=== PATIENT | male | born 1945 | race Caucasian/White ===

== ENCOUNTER 2016-09-30 12:14 | Emergency (ER) | payer BC, MEDICARE ==
[~2016-09-30] VITALS: Ht 172.7 cm; Wt 69.0 kg
[2016-09-30 12:41] VITALS: BP 165/102; PULSE 102; RESP 17; TEMP 98; O2SAT 97
--- NOTE | 2016-09-30 13:37 | PD ---
HPI Chief Complaint: Cold / Flu Symptoms Time Seen by Provider: 13:35 Travel History International Travel<30 days: No Contact w/Intl Traveler<30days: No Traveled to known affect area: No History of Present Illness HPI 70-year-old male presents to the emergency room for evaluation of nonspecific complaints including productive cough and increasing fatigue over the past 2 weeks. Patient states he was trying to get well on his own but symptoms are persistent. Biggest complaint is fatigue. Cough is intermittent and productive of green/brown sputum. He has been taking Tylenol [id number] but no other cough or cold medications. He denies chest pain, shortness of breath, fever, chills, nausea, and vomiting. Denies chronic medical conditions or occasions. Patient smokes half a pack of cigarettes per day. PFSH Past Medical History Medical History: Denies Significant Hx Tetanus Vaccination: > 5 Years Influenza Vaccination: No Past Surgical History Tympanostomy Tube: Yes Social History Alcohol Use: Yes (~4 TIME WEEKLY) Tobacco Use: Yes (1/2 PPD) Substance Use: No Allergies-Medications (Allergen,Severity, Reaction): Coded Allergies: No Known Allergies (Unverified , 09/30/16) Reported Meds & Prescriptions Reported Meds & Active Scripts Active Azithromycin 250 Mg Tab 250 Mg PO DIRECTED Take 2 tabs (500 mg) on day 1 then 1 tab daily x 4 days. Review of Systems Except as stated in HPI: all other systems reviewed are Neg Physical Exam Narrative GENERAL: Well-nourished, well-developed male in no acute distress. Afebrile. Ambulatory. SKIN: Warm and dry. HEAD: Normocephalic. EYES: No scleral icterus. No injection or drainage. ENT: Mucosa pink and moist. No erythema or exudates. No uvular edema. No uvular , palatal, or tonsillar deviation. Airway patent. NECK: Supple, trachea midline. No JVD or lymphadenopathy. CARDIOVASCULAR: Regular rate and rhythm without murmurs, gallops, or rubs. RESPIRATORY: Breath sounds equal bilaterally. No accessory muscle use. Distant lung sounds. No crackles, rales, wheezes, or rhonchi appreciated. Data Data Last Documented VS Vital Signs Date Time Temp Pulse Resp B/P Pulse Ox O2 Delivery O2 Flow Rate FiO2 09/30/16 14:00 95 Room Air 09/30/16 14:00 20 09/30/16 12:41 98.0 102 165/102 Orders Complete Blood Count With Diff (09/30/16 13:31) Comprehensive Metabolic Panel (09/30/16 13:31) Act Partial Throm Time (Ptt) (09/30/16 13:31) Prothrombin Time / Inr (Pt) (09/30/16 13:31) Iv Access Insert/Monitor (09/30/16 13:31) Oximetry (09/30/16 13:31) Oxygen Administration (09/30/16 13:31) Chest, Pa & Lat (09/30/16 13:31) Labs Laboratory Tests Test 09/30/16 13:45 White Blood Count 8.5 TH/MM3 Red Blood Count 4.47 MIL/MM3 Hemoglobin 13.7 GM/DL Hematocrit 40.7 % Mean Corpuscular Volume 91.0 FL Mean Corpuscular Hemoglobin 30.6 PG Mean Corpuscular Hemoglobin 33.7 % Concent Red Cell Distribution Width 12.2 % Platelet Count 675 TH/MM3 Mean Platelet Volume 5.9 FL Neutrophils (%) (Auto) 80.2 % Lymphocytes (%) (Auto) 11.4 % Monocytes (%) (Auto) 7.1 % Eosinophils (%) (Auto) 0.8 % Basophils (%) (Auto) 0.5 % Neutrophils # (Auto) 6.8 TH/MM3 Lymphocytes # (Auto) 1.0 TH/MM3 Monocytes # (Auto) 0.6 TH/MM3 Eosinophils # (Auto) 0.1 TH/MM3 Basophils # (Auto) 0.0 TH/MM3 CBC Comment DIFF FINAL Differential Comment Prothrombin Time 10.4 SEC Prothromb Time International 0.9 RATIO Ratio Activated Partial 38.5 SEC Thromboplast Time Sodium Level 135 MEQ/L Potassium Level 3.9 MEQ/L Chloride Level 97 MEQ/L Carbon Dioxide Level 31.4 MEQ/L Anion Gap 7 MEQ/L Blood Urea Nitrogen 7 MG/DL Creatinine 0.69 MG/DL Estimat Glomerular Filtration 114 ML/MIN Rate Random Glucose 96 MG/DL Calcium Level 8.6 MG/DL Total Bilirubin 0.4 MG/DL Aspartate Amino Transf 17 U/L (AST/SGOT) Alanine Aminotransferase 30 U/L (ALT/SGPT) Alkaline Phosphatase 76 U/L Total Protein 7.8 GM/DL Albumin 3.1 GM/DL MDM Medical Decision Making Medical Screen Exam Complete: Yes Emergency Medical Condition: Yes Medical Record Reviewed: Yes Differential Diagnosis Pneumonia versus COPD exacerbation versus influenza versus bronchitis versus URI Narrative Course 70-year-old male presents to the emergency room for evaluation of fatigue and productive cough for the past 2 weeks. Denies any other upper respiratory symptoms. Patient is afebrile and well-appearing in the emergency room. Resting comfortably in the chair. Patient is laughing and talking excitedly on the phone. He has slightly elevated blood pressure and heart rate which he states is normal for him. He denies chest pain or shortness of breath. No increased work of breathing. Lung sounds are clear and equal but slightly distant bilaterally. Chest x-ray shows possible chronic findings in the right lower lung field but no obvious pneumonia. CBC and CMP are unremarkable. Patient likely has acute exacerbation of chronic bronchitis due to years of smoking. Given acute exacerbation and x-ray findings, he will be discharged with azithromycin. Told to follow up with the primary care physician and return for worsening symptoms. He understands and agrees to plan. Diagnosis Primary Impression: Acute bronchitis Qualified Code: J20.9 - Acute bronchitis, unspecified organism Referrals: Primary Care Physician Patient Instructions: Acute Bronchitis (ED), General Instructions Additional Instructions: Rest and drink plenty of fluids including sugar-free Gatorade. Your labwork shows you are very slightly dehydrated. Azithromycin as directed, until gone. Follow-up with a primary care physician. Return to the emergency room for worsening symptoms. Med/Other Pt SpecificInfo: Prescription(s) given Scripts Azithromycin 250 Mg Try201 Mg PO DIRECTED #6 TAB Ref 0 Take 2 tabs (500 mg) on day 1 then 1 tab daily x 4 days. Prov:Pawan Sheehan MD 09/30/16 Disposition: 01 DISCHARGE HOME Condition: Stable Ambar Duke Sep 30, 2016 13:37
[2016-09-30 14:00] VITALS: RESP 20; O2SAT 95
[2016-09-30 14:05] LABS: AUTOMATED NEUTROPHIL # 6.8 TH/MM3 (1.8-7.7); BASOPHIL % 0.5 % (0.0-2.0); EOSINOPHIL # 0.1 TH/MM3 (0-0.4); EOSINOPHIL % 0.8 % (0.0-4.0); HEMATOCRIT 40.7 % (39.0-51.0); HEMO FLAGS DIFF FINAL; LYMPH % 11.4 % (9.0-44.0); MEAN CORPUSCULAR HEMOGLOBIN 30.6 PG (27.0-34.0); MEAN CORPUSCULAR HGB CONC 33.7 % (32.0-36.0); MONO % 7.1 % (0.0-8.0); NEUT % 80.2 % (16.0-70.0); PLATELET COUNT 675 TH/MM3 (150-450); RED BLOOD COUNT 4.47 MIL/MM3 (4.50-5.90); RED CELL DISTRIBUTION WIDTH 12.2 % (11.6-17.2); WHITE BLOOD COUNT 8.5 TH/MM3 (4.0-11.0)
[2016-09-30 14:14] LABS: CHLORIDE 97 MEQ/L (98-107); POTASSIUM 3.9 MEQ/L (3.5-5.1); SODIUM (NA) 135 MEQ/L (136-145)
[2016-09-30 14:17] LABS: APTT (PATIENT) 38.5 SEC (24.3-30.1); INTERNATIONAL NORMALIZED RATIO 0.9 RATIO; PROTHROMBIN TIME - PATIENT 10.4 SEC (9.8-11.6)
[2016-09-30 14:19] LABS: ANION GAP 7 MEQ/L (5-15); BICARBONATE 31.4 MEQ/L (21.0-32.0); BLOOD UREA NITROGEN 7 MG/DL (7-18)
[2016-09-30 14:22] LABS: ALT (GPT) 30 U/L (12-78); AST (GOT) 17 U/L (15-37)
[2016-09-30 14:23] LABS: GLOMERULAR FILTRATION RATE 114 ML/MIN (>89)
[2016-09-30 14:24] LABS: TOTAL BILIRUBIN ADULT 0.4 MG/DL (0.2-1.0)
[2016-09-30 14:25] LABS: ALKALINE PHOSPHATASE 76 U/L (45-117)
--- NOTE | 2016-09-30 14:25 | RADHPO ---
EXAM DATE/TIME: 09/30/2016 14:03 [facility] COMPARISON: No previous studies available for comparison. INDICATIONS : Short of breath MEDICAL HISTORY : None. SURGICAL HISTORY : None. ENCOUNTER: Initial ACUITY: 2 weeks PAIN SCORE: 3/10 LOCATION: Bilateral chest FINDINGS: PA and lateral views of the chest demonstrate the lungs to be symmetrically aerated without evidence of mass, infiltrate or effusion. Interstitial changes are seen within the anterior right lung base. T he cardiomediastinal contours are unremarkable. Osseous structures are intact. Old right-sided rib f ractures. CONCLUSION: Interstitial changes within the right lung base. These may be chronic in nature. No intra-alveolar in filtrates observed. Kelechi Rodriguez Jr., MD on September 30, 2016 at 14:21 Board Certified Radiologist. This report was verified electronically.
[2016-09-30] MEDS ORDERED: AZIT250T3 PO (14:31)
== END 2016-09-30 14:52 | disposition home or self-care (01) ==
LOC: PHEFT 12:14
DX: J20.9 Acute bronchitis, unspecified (principal); F17.210 Nicotine dependence, cigarettes, uncomplicated; R53.83 Other fatigue
CPT/HCPCS: 71020; 80053; 85025; 85610; 85730; 99283

== ENCOUNTER 2016-11-25 08:27 | Emergency (ER) | payer MEDICARE ==
[~2016-11-25] VITALS: Ht 170.2 cm; Wt 70.0 kg
[~2016-11-25 08:27] MED LIST: AZIT250T3 PO
[2016-11-25 08:37] VITALS: BP 176/98; PULSE 100; RESP 22; TEMP 97.6; O2SAT 99
[2016-11-25] MEDS ORDERED: SODIUM CHLORIDE 0.9% FLUSH 10 ML FLUSH IVF PRN (08:45)
[2016-11-25] MEDS ORDERED: methylPREDNISolone SOD SUCC 125 MG/2 ML VIAL IVP ONE (08:45)
[2016-11-25 08:49] VITALS: O2SAT 100
--- NOTE | 2016-11-25 08:52 | PD ---
HPI Chief Complaint: Cold / Flu Symptoms Time Seen by Provider: 08:38 Travel History International Travel<30 days: No Contact w/Intl Traveler<30days: No Traveled to known affect area: No History of Present Illness HPI This patient complains of shortness of breath. Duration 3 days. Symptoms are severe. He is laboring to breathe. He is a lifelong smoker that doesn't go to doctors or take medications. He has been wheezing and congested and has a dry hacking cough. He has not checked any temperatures. No chest pain. No alleviating factors. PFSH Past Surgical History Tympanostomy Tube: Yes Social History Alcohol Use: Yes (~4 TIME WEEKLY) Tobacco Use: Yes (09/05 PPD) Substance Use: No Allergies-Medications (Allergen,Severity, Reaction): Coded Allergies: No Known Allergies (Unverified , 09/30/16) Reported Meds & Prescriptions Reported Meds & Active Scripts Active Atrovent HFA 12.9 GM Inh (Ipratropium [place]) 17 Mcg/Act Aer 2 Puff INH TID Ventolin Hfa 18 GM Inh (Albuterol Sulfate) 90 Mcg/Act Aer 2 Puff INH Q4-6H PRN Prednisone 20 Mg Tab 40 Mg PO DAILY Take 40 mg (2 tablets) daily for 5 days Azithromycin 250 Mg Tab 250 Mg PO DIRECTED Take 2 tabs (500 mg) on day 1 then 1 tab daily x 4 days. Review of Systems General / Constitutional: No: Fever Eyes: No: Visual changes HENT: No: Headaches Cardiovascular: No: Chest Pain or Discomfort Respiratory: Positive: Cough, Shortness of Breath, Wheezing Gastrointestinal: No: Abdominal Pain Genitourinary: No: Dysuria Musculoskeletal: No: Pain Skin: No Rash Neurologic: No: Weakness Psychiatric: No: Depression Endocrine: No: Polydipsia Hematologic/Lymphatic: No: Easy Bruising Physical Exam Narrative GENERAL: Well-nourished, well-developed patient in respiratory distress. SKIN: Warm and dry. HEAD: Atraumatic. Normocephalic. EYES: Pupils equal and round. No scleral icterus. No injection or drainage. ENT: No nasal bleeding or discharge. Mucous membranes pink and moist. NECK: Trachea midline. No JVD. CARDIOVASCULAR: Regular rate and rhythm. No murmur appreciated. RESPIRATORY: Positive accessory muscle use. Diffuse expiratory wheezing. Breath sounds equal bilaterally. GASTROINTESTINAL: Abdomen soft, non-tender, nondistended. Hepatic and splenic margins not palpable. MUSCULOSKELETAL: No obvious deformities. No clubbing. No cyanosis. No edema. NEUROLOGICAL: Awake and alert. No obvious cranial nerve deficits. Motor grossly within normal limits. Normal speech. PSYCHIATRIC: Appropriate mood and affect; insight and judgment seems a bit weak. Data Data Last Documented VS Vital Signs Date Time Temp Pulse Resp B/P Pulse Ox O2 Delivery O2 Flow Rate FiO2 11/25/16 09:30 92 16 160/80 100 Nasal Cannula 11/25/16 08:55 3.00 11/25/16 08:37 97.6 Orders Complete Blood Count With Diff (11/25/16 08:44) Basic Metabolic Panel (Bmp) (11/25/16 08:44) Iv Access Insert/Monitor (11/25/16 08:44) Ecg Monitoring (11/25/16 08:44) Oximetry (11/25/16 08:44) Oxygen Administration (11/25/16 08:44) Chest, Single Ap (11/25/16 08:44) Sodium Chloride 0.9% Flush (Ns Flush) (11/25/16 08:45) Methylprednisolone So Succ Inj (Solumedr (11/25/16 08:45) Albuterol-Ipratropium Neb (Duoneb Neb) (11/25/16 08:45) Labs Laboratory Tests Test 11/25/16 08:59 White Blood Count 4.9 TH/MM3 Red Blood Count 5.13 MIL/MM3 Hemoglobin 16.0 GM/DL Hematocrit 47.9 % Mean Corpuscular Volume 93.4 FL Mean Corpuscular Hemoglobin 31.3 PG Mean Corpuscular Hemoglobin 33.5 % Concent Red Cell Distribution Width 15.0 % Platelet Count 288 TH/MM3 Mean Platelet Volume 6.8 FL Neutrophils (%) (Auto) 74.2 % Lymphocytes (%) (Auto) 9.0 % Monocytes (%) (Auto) 13.0 % Eosinophils (%) (Auto) 1.2 % Basophils (%) (Auto) 2.6 % Neutrophils # (Auto) 3.7 TH/MM3 Lymphocytes # (Auto) 0.4 TH/MM3 Monocytes # (Auto) 0.6 TH/MM3 Eosinophils # (Auto) 0.1 TH/MM3 Basophils # (Auto) 0.1 TH/MM3 CBC Comment DIFF FINAL Differential Comment Sodium Level 126 MEQ/L Potassium Level 4.3 MEQ/L Chloride Level 89 MEQ/L Carbon Dioxide Level 24.5 MEQ/L Anion Gap 13 MEQ/L Blood Urea Nitrogen 7 MG/DL Creatinine 0.63 MG/DL Estimat Glomerular Filtration 126 ML/MIN Rate Random Glucose 107 MG/DL Calcium Level 8.8 MG/DL MDM Medical Decision Making Medical Screen Exam Complete: Yes Emergency Medical Condition: Yes Medical Record Reviewed: Yes Differential Diagnosis Differential diagnosis includes COPD, asthma, pneumonia, bronchitis, CHF Narrative Course I have reviewed the patient's electronic medical record. Patient was seen here once in September 2016 for bronchitis This patient looks critically ill with hypoxic respiratory failure from probable COPD given his lifelong smoking and clinical presentation. He has room air saturation of 89-90% On a clinical basis he is significantly laboring to breathe He is emergently getting a series of 3 nebulizer treatments. I placed him on oxygen IV placed I gave him IV Solu-Medrol CBC is normal Metabolic profile shows hyponatremia 126 Extended cardiac monitoring reveals sinus tachycardia in the 120s Multiple bedside rechecks were done Upon final reevaluation he is somewhat improved and no longer critically ill but I do recommend hospitalization. He still short of breath and wheezing. Saturations have come up to 95% on room air Patient however is refusing my recommendation will sign out AGAINST MEDICAL ADVICE. He does not want to stay in the hospital Advised him to return if he worsens or changes his mind I prescribed him both Atrovent and albuterol inhalers as well as a course of prednisone Encouraged the cessation of smoking Critical Care Narrative Aggregate critical care time was 34 minutes. Time to perform other separately billable procedures was not included in the critical care time. My time did not include minutes spent treating any other patients simultaneously or on activities that did not directly contribute to the patient's treatment. The services I provided to this patient were to treat and/or prevent clinically significant deterioration that could result in: Cardiopulmonary arrest, hypoxemic brain injury, complete respiratory failure I provided critical care services requiring my management, as noted below: Chart data review, documentation time, medication orders and management, vital sign assessments/reviewing monitor data, ordering and reviewing lab tests, ordering and interpreting/reviewing x-rays and diagnostic studies, care of the patient and discussion of the patient with the admitting physicians. Diagnosis Primary Impression: Acute respiratory failure with hypoxia Additional Impression: COPD suggested by initial evaluation Additional Instructions: Stop smoking The patient was advised to follow up with their physician and return if they worsen. Med/Other Pt SpecificInfo: Prescription(s) given Scripts Ipratropium HFA 12.9 GM Inh (Atrovent HFA 12.9 GM Inh)17 Mcg/Act Aer2 Puff INH TID #1 INHALER Ref 0 Prov:Gil Okeefe MD 11/25/16 Albuterol 18 GM Inh (Ventolin Hfa 18 GM Inh)90 Mcg/Act Aer2 Puff INH Q4-6H PRN ( SHORTNESS OF BREATH) #1 INHALER Ref 0 Prov:Gil Okeefe MD 11/25/16 Prednisone 20 Mg Tab40 Mg PO DAILY #10 TAB Ref 0 Take 40 mg (2 tablets) daily for 5 days Prov:Gil Okeefe MD 11/25/16 Disposition: 07 AGAINST MEDICAL ADVICE Gil Okeefe MD Nov 25, 2016 08:52
[2016-11-25 08:55] VITALS: O2SAT 98
[2016-11-25] MEDS: RESP: ALBUTEROL 2.5 MG/IPRATROPIUM 0.5 MG NEB (SCH) INH (08:56)
--- NOTE | 2016-11-25 09:05 | RADHPO ---
EXAM DATE/TIME: 11/25/2016 08:54 [facility] COMPARISON: No previous studies available for comparison. INDICATIONS : Short of breath. MEDICAL HISTORY : None. SURGICAL HISTORY : None. ENCOUNTER: Initial ACUITY: 3 days PAIN SCORE: 0/10 LOCATION: Bilateral chest FINDINGS: A single view of the chest demonstrates the lungs to be symmetrically aerated without evidence of mas s, infiltrate or effusion. The cardiomediastinal contours are unremarkable. Osseous structures are intact. CONCLUSION: No acute disease. Newton Couch MD on November 25, 2016 at 9:04 Board Certified Radiologist. This report was verified electronically.
[2016-11-25 09:06] LABS: AUTOMATED NEUTROPHIL # 3.7 TH/MM3 (1.8-7.7); BASOPHIL # 0.1 TH/MM3 (0-0.2); BASOPHIL % 2.6 % (0.0-2.0); EOSINOPHIL # 0.1 TH/MM3 (0-0.4); EOSINOPHIL % 1.2 % (0.0-4.0); HEMATOCRIT 47.9 % (39.0-51.0); HEMO FLAGS DIFF FINAL; LYMPHOCYTE # 0.4 TH/MM3 (1.0-4.8); MEAN CELL VOLUME 93.4 FL (80.0-100.0); MEAN CORPUSCULAR HEMOGLOBIN 31.3 PG (27.0-34.0); MEAN CORPUSCULAR HGB CONC 33.5 % (32.0-36.0); NEUT % 74.2 % (16.0-70.0); PLATELET COUNT 288 TH/MM3 (150-450); RED BLOOD COUNT 5.13 MIL/MM3 (4.50-5.90); WHITE BLOOD COUNT 4.9 TH/MM3 (4.0-11.0)
[2016-11-25 09:13] LABS: POTASSIUM 4.3 MEQ/L (3.5-5.1)
[2016-11-25 09:17] LABS: BICARBONATE 24.5 MEQ/L (21.0-32.0)
[2016-11-25 09:30] VITALS: BP 160/80; PULSE 92; RESP 16; O2SAT 100
[2016-11-25] MEDS ORDERED: VENTAER INH (09:47)
[2016-11-25] MEDS ORDERED: IPRA17I INH (09:47)
[2016-11-25] MEDS ORDERED: PRED20 PO (09:47)
[2016-11-25 09:49] VITALS: BP 160/82; PULSE 114; RESP 16; O2SAT 98
== END 2016-11-25 10:23 | disposition left against medical advice (07) ==
LOC: PHED 08:27
DX: J96.01 Acute respiratory failure with hypoxia (principal); F17.210 Nicotine dependence, cigarettes, uncomplicated
CPT/HCPCS: 71010; 80048; 85025; 94640; 94664; 96374; 99291; J2930